=== PATIENT | female | born 1965 | race Two or more races ===

== ENCOUNTER 2017-07-14 14:41 | Emergency (ER) | payer BC, OTHER ==
[2017-07-14] MEDS ORDERED: Tetan/Diph/Pertus SYR(Tdap)* 0.5 ML SYR(BOOSTRIX) use SYR IM ONE (15:06)
--- NOTE | 2017-07-14 15:07 | UC ---
Laceration HPI - HPI Summary HPI Summary: 51 yo female presents s/p FB in her left great toe. She tells me that she was swimming at the school's pool and stepped on the pool floor. [place] a piece of something going into her big toe. Got out of the pool and realized it was a piece of metal - was able to fully remove the object. She is here because she is unsure when her last tetanus shot was and would like this updated today. - History Of Current Complaint Stated Complaint: FOOT LACERATION Time Seen by Provider: 07/14/17 15:07 Hx Obtained From: Patient Hx Last Menstrual Period: 02/04/14 Mechanism Of Injury: Sharp Trauma Onset/Duration: Sudden Onset - Allergies/Home Medications Allergies/Adverse Reactions: Allergies Allergy/AdvReac Type Severity Reaction Status Date / Time codeine Allergy Itching Verified 07/14/17 15:14 diphenhydramine Allergy Itching Verified 07/14/17 15:14 [From Benadryl] fentanyl Allergy Hives Verified 07/14/17 15:14 PMH/Surg Hx/FS Hx/Imm Hx Endocrine History: Diabetes, Dyslipidemia Cardiovascular History: Hypertension Psychological History: Anxiety - Surgical History Surgical History: Yes Surgery Procedure, Year, and Place: c section x 2. nerve implant placed 2009 - Family History Known Family History: Positive: Unknown - ADOPTED, Other - SON HAS AUTOIMMUNE CONDITION, PT WAS ADOPTED - Social History Occupation: Employed Full-time Lives: With Family Alcohol Use: None Substance Use Type: None Smoking Status (MU): Never Smoked Tobacco Review of Systems Constitutional: Negative Skin: Other - Stepped on metal left big toe Respiratory: Negative Cardiovascular: Negative Gastrointestinal: Negative Neurovascular: Negative Neurological: Negative Psychological: Negative All Other Systems Reviewed And Are Negative: Yes Physical Exam - Summary Physical Exam Summary: GENERAL: NAD. WDWN. No pain distress. SKIN: Left great toe: Plantar surface with <1mm puncture wound to distal toe pad. No FB appreciated. NTTP. No streaking, bleeding, or drainage. NECK: Supple. Nontender. No lymphadenopathy. CHEST: No accessory muscle use. Breathing comfortably and in no distress. CV: RRR. Without m/r/g. NEURO: Alert. CN II-XII grossly intact. PSYCH: Age appropriate behavior. Triage Information Reviewed: Yes Laceration Course/Dx - Course/Dx Course Of Treatment: Appears full piece of metal was removed [employer]. Updated tdap today. - Differential Dx - Laceration/Wound Provider Diagnoses: Left toe stepped on metal Discharge - Sign-Out/Discharge Documenting (check all that apply): Discharge/Admit/Transfer - Discharge Plan Condition: Stable Disposition: HOME Patient Education Materials: Tdap and Td Vaccines in Adults (ED) Referrals: No Primary Care Phys,NOPCP [Primary Care Provider] - Additional Instructions: If you develop a fever, shortness of breath, chest pain, new or worsening symptoms - please call your PCP or go to the ED. - Billing Disposition and Condition Condition: STABLE Disposition: HOME
[2017-07-14 15:13] VITALS: BP 119/85
== END 2017-07-14 15:31 | disposition home or self-care (01) ==
LOC: UCEAST 14:41
DX: S91.132A Puncture wound without foreign body of left great toe without damage to nail, initial encounter (principal); Z88.5 Allergy status to narcotic agent; Z88.8 Allergy status to other drugs, medicaments and biological substances; W22.8XXA Striking against or struck by other objects, initial encounter; Y93.11 Activity, swimming; Y92.219 Unspecified school as the place of occurrence of the external cause
CPT/HCPCS: 90471; 90715; 99211; G0463

== ENCOUNTER 2018-12-03 11:54 | Emergency (ER) | payer BC, OTHER ==
[2018-12-03 12:07] VITALS: BP 128/84
--- NOTE | 2018-12-03 12:16 | UC ---
Hip/Pelvis Pain - HPI Summary HPI Summary: 53 yo female presents with LEFT hip pain. She tells me that for the last month she has noticed intermittent pain in her left hip that is worse with walking and being on her feet all day. Over the last 2-3 days her pain has worsened and is very tender to touch. She has been taking motrin with little relief. She denies specific injury, radiation of pain, back pain, flank pain, dysuria, numbness, tingling, saddle anesthesia, or loss of bowel/bladder control. - History Of Current Complaint Chief Complaint: UCLowerExtremity Stated Complaint: HIP PAIN Time Seen by Provider: 12/03/18 12:15 Hx Obtained From: Patient Hx Last Menstrual Period: 02/04/14 Onset/Duration: Gradual Onset Severity Initially: Mild Severity Currently: Moderate Pain Intensity: 7 Pain Scale Used: 0-10 Numeric - Allergies/Home Medications Allergies/Adverse Reactions: Allergies Allergy/AdvReac Type Severity Reaction Status Date / Time codeine Allergy Itching Verified 12/03/18 12:07 diphenhydramine Allergy Itching Verified 12/03/18 12:07 [From Benadryl] fentanyl Allergy Hives Verified 12/03/18 12:07 PMH/Surg Hx/FS Hx/Imm Hx - Additional Past Medical History Additional PMH: ADHD Endocrine History: Diabetes, Dyslipidemia Cardiovascular History: Hypertension Psychological History: Anxiety, Depression - Surgical History Surgical History: Yes Surgery Procedure, Year, and Place: c section x 2. nerve implant placed 2009 - Family History Known Family History: Positive: Unknown - ADOPTED, Other - SON HAS AUTOIMMUNE CONDITION, PT WAS ADOPTED - Social History Occupation: Employed Full-time Lives: With Family Alcohol Use: None Substance Use Type: None Smoking Status (MU): Never Smoked Tobacco Review of Systems All Other Systems Reviewed And Are Negative: No Constitutional: Positive: Negative Skin: Positive: Negative Respiratory: Positive: Negative Cardiovascular: Positive: Negative Gastrointestinal: Positive: Negative Neurovascular: Positive: Negative Musculoskeletal: Positive: Other: - Left hip pain Neurological: Positive: Negative Psychological: Positive: Negative Physical Exam - Summary Physical Exam Summary: GENERAL: NAD. WDWN. No pain distress. SKIN: No rashes, sores, lesions, or open wounds. NECK: Supple. FROM. Nontender. No lymphadenopathy. CHEST: CTAB. No r/r/w. No accessory muscle use. Breathing comfortably and in no distress. CV: RRR. Pulses intact. Cap refill <2seconds MSK: LEFT HIP: Moderate TTP at left tronchanter. Mild pain with flexion and adduction of hip. Negative SLR b/l. Strength 5/5 B/L LEs including dorsiflexion and plantar flexion. FROM B/L LEs. No edema. NEURO: Alert. Sensations intact B/L LEs L3-S1. Reflexes intact PSYCH: Age appropriate behavior. Triage Information Reviewed: Yes Vital Signs: Initial Vital Signs Temp 97.3 F 12/03/18 12:03 Pulse 111 12/03/18 12:03 Resp 18 12/03/18 12:03 BP 128/84 12/03/18 12:03 Pulse Ox 97 12/03/18 12:03 Laboratory Tests 12/03/18 12:36 POC Urine Color Yellow POC Urine Clarity Clear POC Urine pH 6.0 POC Ur Specif [place] >= 1.030 POC Urine Protein 2+ A POC Ur Glucose (UA) 2+ A POC Urine Ketones 2+ A POC Urine Blood Negative POC Urine Nitrite Negative POC Urine Bilirubin Negative POC Urine Urobilinogen 0.2 POC U Leukocyte Esteras Negative Vital Signs Reviewed: Yes Diagnostics - Radiology Hip XR Radiology Interpretation Completed By: Radiologist Summary of Radiographic Findings: IMPRESSION: No fracture of the left hip or pelvis is noted. Hip Injury Course/Dx - Course Course Of Treatment: XR as above. Suspect trochanteric bursitis. Advised to rest and apply ice to the area. Will rx for flexeril and norco given her diabetes and chronic proteinuria - should avoid NSAIDs at this time. Will refer to PT and Orthopedics for further treatment and eval - Differential Dx/Diagnosis Provider Diagnosis: Trochanteric bursitis, left hip Discharge ED - Sign-Out/Discharge Documenting (check all that apply): Patient Departure All imaging exams completed and their final reports reviewed: Yes - Discharge Plan Condition: Stable Disposition: HOME Prescriptions: Cyclobenzaprine TAB* [Flexeril 10 MG TAB*] 10 mg PO BID PRN #14 tab PRN Reason: Pain - Moderate HYDROcodone/ACETAMIN 5-325 MG* [[place] 5-325 TAB*] 1 tab PO BID PRN #6 tab MDD 2 PRN Reason: Pain - Severe Patient Education Materials: Hip Bursitis (ED) Referrals: No Primary Care Phys,NOPCP [Primary Care Provider] - Becca Bacon MD [Medical Doctor] - If Needed Additional Instructions: If you develop a fever, shortness of breath, chest pain, new or worsening symptoms - please call your PCP or go to the ED immediately. 1) Rest and ice your hip to decrease inflammation 2) I recommend that you schedule an appointment with physical therapy for further treatment 3) If your pain does not improve within 1-2 weeks, please call Orthopedics at the number below to schedule an appointment for a recheck - Billing Disposition and Condition Condition: STABLE Disposition: Home
[2018-12-03] MEDS ORDERED: Ketorolac INJ* 30 MG/ML 1 ML VIAL IM ONE (12:48)
== END 2018-12-03 13:30 | disposition home or self-care (01) ==
LOC: UCEAST 11:54
DX: M70.62 Trochanteric bursitis, left hip (principal); F90.9 Attention-deficit hyperactivity disorder, unspecified type; E11.9 Type 2 diabetes mellitus without complications; I10 Essential (primary) hypertension; Z88.5 Allergy status to narcotic agent; Z88.8 Allergy status to other drugs, medicaments and biological substances; Z88.4 Allergy status to anesthetic agent
CPT/HCPCS: 81003; 96372; 99212; G0463; J1885

== ENCOUNTER 2019-01-26 21:36 | Emergency (ER) | payer BC ==
[2019-01-26] MEDS ORDERED: NS 0.9% 1000 ML** 1,000 ML IV ONE (21:48)
--- NOTE | 2019-01-26 21:55 | ED ---
GI/ HPI - HPI Summary HPI Summary: Patient is a 53 y/o F w/ Hx of DM and Pia's disease who presents to [facility] with complaints of N/V. Sx onset 01/26/19 this morning after the patient had gone to work. Patient states that she has vomited x7 today. Decreased appetite and PO intake is noted as well. Patient notes her mouth is dry. She states that she had Brain CT, with and without contrast, yesterday, 01/25/19, due to dizziness and imbalance she had been experiencing. This was the first time the patient had contrast. However, patient did not have any Sx yesterday. Abdominal pain, diarrhea, rash, and pruritus are denied. She states that the smell of food aggravates her Sx. On triage, pain is denied. Home medications and allergies are reviewed. Vitals in room are pulse 117, o2 sat 98 on RA, and BP 169/98. - History of Current Complaint Chief Complaint: EDNauseaVomitDiarrh Time Seen by Provider: 01/26/19 21:48 Stated Complaint: VOMITING PER Hx Obtained From: Patient Hx Last Menstrual Period: 02/04/14 Onset/Duration: Started Hours Ago Timing: Lasting Hours Current Severity: None - pain denied Pain Intensity: 0 Associated Signs and Symptoms: Positive: Nausea, Vomiting, Change in Appetite - decreased, Other: - positive - dry mouth; negative - rash, pruritus. Negative: Abdominal Pain Aggravating Factor(s): Nothing Alleviating Factor(s): Nothing - Allergy/Home Medications Allergies/Adverse Reactions: Allergies Allergy/AdvReac Type Severity Reaction Status Date / Time codeine Allergy Itching Verified 01/25/19 10:46 diphenhydramine Allergy Itching Verified 01/25/19 10:46 [From Benadryl] fentanyl Allergy Hives Verified 01/25/19 10:46 PMH/Surg Hx/FS Hx/Imm Hx Endocrine/Hematology History: Reports: Hx Diabetes - type 2 dm, Hx Thyroid Disease Cardiovascular History: Reports: Hx Hypercholesterolemia, Hx Hypertension Respiratory History: Reports: Hx Asthma History: Denies: Hx Dialysis, Hx Renal Disease Neurological History: Denies: Other Neuro Impairments/Disorders Psychiatric History: Reports: Hx Anxiety, Hx Depression - Cancer History Hx Chemotherapy: No Hx Radiation Therapy: No - Surgical History Surgery Procedure, Year, and Place: c section x 2. nerve implant placed 2009 r/ t left ulnar nerve Infectious Disease History: No Infectious Disease History: Denies: History Other Infectious Disease, Traveled Outside the [place] in Last 30 Days - Family History Known Family History: Positive: Other - SON HAS AUTOIMMUNE CONDITION, PT WAS ADOPTED - Social History Alcohol Use: None Hx Substance Use: No Substance Use Type: Reports: None Hx Tobacco Use: No Smoking Status (MU): Never Smoked Tobacco Review of Systems ENT: Other - positive - dry mouth Gastrointestinal: Other - positive - decreased PO intake Positive: Vomiting, Nausea. Negative: Abdominal Pain Skin: Other - negative - pruritus Negative: Rash All Other Systems Reviewed And Are Negative: Yes Physical Exam - Summary Physical Exam Summary: Appearance: Well-appearing, Well-nourished, lying in bed comfortably Skin: Warm, dry, no obvious rash Eyes: sclera anicteric, no conjunctival pallor ENT: mucous membranes moist, pharynx appears normal Neck: Supple, nontender Respiratory: Clear to auscultation, no signs of respiratory distress Cardiovascular: Normal S1, S2. No murmurs. Normal distal pulses in tibial and radial bilaterally. Abdomen: Soft, nontender, normal active bowel sounds present Musculoskeletal: Normal, Strength/ROM Intact Neurological: A&Ox3, awake and alert, mentation is normal, speech is fluent and appropriate Psychiatric: affect is normal, does not appear anxious or depressed Triage Information Reviewed: Yes Vital Signs On Initial Exam: Initial Vitals Temp Pulse Resp BP Pulse Ox 98 F 119 22 150/115 99 01/26/19 21:39 01/26/19 21:39 01/26/19 21:39 01/26/19 21:39 01/26/19 21:39 Vital Signs Reviewed: Yes Procedures - Sedation Patient Received Moderate/Deep Sedation with Procedure: No Diagnostics - Vital Signs Vital Signs Temp Pulse Resp BP Pulse Ox 01/26/19 21:39 98 F 119 22 150/115 99 - Laboratory Result Diagrams: 01/26/19 22:39 01/27/19 03:20 Lab Statement: Any lab studies that have been ordered have been reviewed, and results considered in the medical decision making process. Re-Evaluation - Re-Evaluation First Eval Re-Evaluation Time: 04:13 Change: Improved Comment: Patient's BG is improved with medications, she was discharged to home. GIGU Course/Dx - Course Course Of Treatment: Patient is a 53 y/o F w/ Hx of DM and Pia's disease who presents to [facility] with complaints of N/V. Sx onset 01/26/19 this morning after the patient had gone to work. Patient states that she has vomited x7 today. Decreased appetite and PO intake is noted as well. Patient notes her mouth is dry. She states that she had Brain CT, with and without contrast, yesterday, 01/25/19, due to dizziness and imbalance she had been experiencing. This was the first time the patient had contrast. However, patient did not have any Sx yesterday. Abdominal pain, diarrhea, rash, and pruritus are denied. Physical exam is unremarkable. UA showed 3+ glucose and 1+ ketones. Initial bloodwork showed glucose of 546. Other abnormal values include anion gap of 12, carbon dioxide 21, chloride 97, sodium 130, RBC 5.12. During ED course, patient received fluids, Compazine 10 mg IV, Zofran 8 mg IV, insulin 10 units SUBCUT. Repeat blood glucose was 189. Patient was discharged to home with prescription for compazine and zofran. She will follow up with PCP within two days. - Diagnoses Provider Diagnoses: Nausea and vomiting Discharge ED - Sign-Out/Discharge Documenting (check all that apply): Patient Departure - discharge - Discharge Plan Condition: Stable Disposition: HOME Prescriptions: Ondansetron ODT TAB* [Zofran 4 MG Odt TAB*] 8 mg PO Q6H PRN #12 tab.odt PRN Reason: Nausea Prochlorperazine TAB* [Compazine Tab*] 10 mg PO Q6H PRN #10 tab PRN Reason: Nausea Patient Education Materials: Acute Nausea and Vomiting (ED) Referrals: Nisreen Rodney MD [Primary Care Provider] - 2 Days (unless back to normal ) Additional Instructions: You will need to cut back somewhat on your insulin until you're sure the vomiting has resolved and you are able to eat more normally. Generally the long acting insulin is dropped back by about half, and the short acting insulin is dosed according to blood sugar levels. - Billing Disposition and Condition Condition: STABLE Disposition: Home - Attestation Statements Document Initiated by Scribe: Yes Documenting Scribe: RIVERA ROMAN Provider For Whom Scribe is Documenting (Include Credential): KATIUSKA FOREST, MD Scribe Attestation: I, RIVERA ROMAN, scribed for KATIUSKA ZAPATA MD on 01/28/19 at 0543. Scribe Documentation Reviewed: Yes Provider Attestation: The documentation as recorded by the scribeRIVERA accurately reflects the service I personally performed and the decisions made by me, KATIUSKA ZAPATA MD Status of Scribe Document: Viewed
[2019-01-26] MEDS ORDERED: Ondansetron INJ* 2 MG/ML VIAL IV ONE (21:56)
[2019-01-26 22:37] LABS: Urine Appearance Clear; Urine Bilirubin Negative (Negative); Urine Blood Negative (Negative); Urine Color Yellow; Urine Glucose 3+(>=500 mg/dL) (Negative); Urine Ketones 1+ (Negative); Urine Nitrite Negative (Negative); Urine Protein Negative (Negative); Urine Specific Gravity 1.027 (1.010-1.030); Urine Urobilinogen Negative (Negative)
[2019-01-26 22:45] LABS: ABS Basophils 0.1 10^3/ul (0-0.2); ABS Monocytes 0.8 10^3/ul (0-0.8); ABS Neutrophils 5.3 10^3/ul (1.5-7.7); Eosinophil % 0.1 %; Hematocrit 44 % (35-47); Hemoglobin 15.2 g/dL (12.0-16.0); Lymphocyte % 32.2 %; Mean Corpuscular HGB Conc 34 g/dL (31-36); Mean Corpuscular Hemoglobin 30 pg (27-31); Mean Corpuscular Volume 86 fL (80-97); Mean Platelet Volume 9.3 fL (7.4-10.4); Nucleated Red Blood Cells % 0.1; Platelet Count 249 10^3/uL (150-450); Red Blood Count 5.12 10^6 /uL (3.70-4.87); Red Cell Distribution Width 13 % (10-15); White Blood Count 9.2 10^3/uL (3.5-10.8)
[2019-01-26 23:06] LABS: Albumin/Globulin Ratio 1.3 (1-3); Calcium 10.3 mg/dL (8.6-10.3); EGFR African American 85.3 (>60); EGFR Non-African American 70.5 (>60); Globulin 3.2 g/dL (2-4); Potassium 4.1 mmol/L (3.5-5.0); Total Bilirubin 0.4 mg/dL (0.2-1.0); Total Protein 7.2 g/dL (6.4-8.9)
[2019-01-26] MEDS ORDERED: Insulin LISPRO* 1 UNITS UNIT SUBCUT ONE (23:16)
[2019-01-26] MEDS ORDERED: Dextrose 50% VIAL 50 ml IV PUSH PRN (23:16)
[2019-01-26] MEDS ORDERED: NS 0.9% 1000 ML** 2,000 ML IV ONE (23:16)
[2019-01-26 23:28] LABS: TSH (Thyroid Stimulating Horm) 3.13 mcIU/mL (0.34-5.60)
[2019-01-27] MEDS ORDERED: PROCHLORPERAZINE INJ 5 MG/ML 2 ML VIAL IV ONE (00:03)
[2019-01-27 03:44] LABS: BUN/Creatinine Ratio 19.4 (8-20); Calcium 8.9 mg/dL (8.6-10.3); EGFR African American 122.8 (>60); EGFR Non-African American 101.5 (>60); Potassium 3.6 mmol/L (3.5-5.0)
[2019-01-27 04:32] VITALS: BP 101/63
== END 2019-01-27 04:32 | disposition home or self-care (01) ==
LOC: ED 21:36
DX: R11.2 Nausea with vomiting, unspecified (principal); E11.9 Type 2 diabetes mellitus without complications; E78.00 Pure hypercholesterolemia, unspecified; I10 Essential (primary) hypertension; F41.9 Anxiety disorder, unspecified; F32.9 Major depressive disorder, single episode, unspecified
CPT/HCPCS: 36415; 80048; 80053; 81003; 83605; 84443; 85025; 99283; J0780; J2405